=== PATIENT | male | born 1965 | race Caucasian/White ===

== ENCOUNTER 2019-05-16 21:42 | Emergency (ER) | payer SELFPAY ==
[~2019-05-16] VITALS: Ht 177.8 cm; Wt 127.0 kg
[2019-05-16] MEDS ORDERED: ONDANSETRON HCL 4MG/2ML INJ IV STA (22:38)
[2019-05-16] MEDS ORDERED: LORAZEPAM 2MG/ML CPJ IM STA (22:38)
[2019-05-16] MEDS ORDERED: SODIUM CHLORIDE 0.9% 1,000 ML IV ONE (22:38)
[2019-05-16] MEDS ORDERED: OLANZAPINE 10 MG/VIAL IM ONE (22:45)
[2019-05-16 23:43] LABS: BASOPHILS % 0.7 % (0.0-2.0); EOSINOPHILS % 2.2 % (0.0-5.0); HEMATOCRIT. 41.9 % (42.0-52.0); HEMOGLOBIN. 14.1 g/dL (14.0-18.0); LYMPHOCYTES % 11.4 % (20.0-50.0); MEAN CORPUSCULAR HEMOGLOBIN 28.8 pg (28.0-32.0); MEAN CORPUSCULAR VOLUME 85.5 fL (80.0-94.0); MEAN PLATELET VOLUME 8.2 fl (7.4-10.4); NEUTROPHILS % 74.7 % (40.0-76.0); PLATELET 267 x1000/uL (130-400); RED CELL DISTRIBUTION WIDTH 14.3 % (11.6-14.6)
[2019-05-16 23:48] LABS: CHLORIDE 104 mEq/L (98-107)
[2019-05-16 23:52] LABS: ETHANOL BLOOD < 10 mg/dL
[2019-05-16 23:56] LABS: CREATINE KINASE 436 IU/L (39-308)
[2019-05-17 06:29] VITALS: BP 154/81
== END 2019-05-17 06:40 | disposition home or self-care (01) ==
LOC: ER 21:42
DX: G93.40 Encephalopathy, unspecified (principal); T40.5X1A Poisoning by cocaine, accidental (unintentional), initial encounter; E11.9 Type 2 diabetes mellitus without complications; I10 Essential (primary) hypertension; R00.2 Palpitations; Y92.89 Other specified places as the place of occurrence of the external cause
CPT/HCPCS: 36415; 80053; 80307; 80320; 80329; 82550; 83690; 83880; 84443; 84484; 85025; 93005; 96372; 96374; 99284; J2060; J2405; J3490; J7030; G0480